=== PATIENT | female | born 1975 | race Caucasian/White ===

== ENCOUNTER 2020-09-05 12:47 | Outpatient (CLI) | payer BC | END 2020-09-05 23:59 | disposition home or self-care (01) | LOC: 64 CT 12:47 | PROVIDERS: ATTEND Registered Nurse | DX: S92.252A Displaced fracture of navicular [scaphoid] of left foot, initial encounter for closed fracture (principal); S92.102A Unspecified fracture of left talus, initial encounter for closed fracture; S92.212A Displaced fracture of cuboid bone of left foot, initial encounter for closed fracture; Z68.27 Body mass index [BMI] 27.0-27.9, adult; X58.XXXA Exposure to other specified factors, initial encounter; Y93.89 Activity, other specified; Y92.89 Other specified places as the place of occurrence of the external cause; Y99.8 Other external cause status | CPT/HCPCS: 73700 ==

== ENCOUNTER 2020-10-19 08:00 | Outpatient (CLI) | payer BC ==
[2020-10-19] VITALS (21 sets, daily range): BP systolic 63–149; BP diastolic 21–97
== END 2020-10-19 23:59 | disposition home or self-care (01) ==
LOC: CARD DIAG 08:00
PROVIDERS: ATTEND Internal Medicine Interventional Cardiology
DX: R06.02 Shortness of breath (principal); R42 Dizziness and giddiness; R53.83 Other fatigue
CPT/HCPCS: 93660

== ENCOUNTER 2022-02-11 00:32 | Outpatient (CLI) | payer OTHER | END 2022-02-11 23:59 | disposition home or self-care (01) | LOC: RT 00:32 | PROVIDERS: ATTEND Internal Medicine | DX: R06.02 Shortness of breath (principal); U09.9 Post COVID-19 condition, unspecified; J45.909 Unspecified asthma, uncomplicated | CPT/HCPCS: 94618 ==